=== PATIENT | male | born 1955 | race African-American/Black ===

== ENCOUNTER 2020-06-02 11:18 | Inpatient (IN) | payer MEDICAID, MEDICARE, OTHER ==
[~2020-06-02] VITALS: Ht 182.9 cm; Wt 73.9 kg
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
[~2020-06-02 11:18] MED LIST: ACETAMINOPHEN-1 EAC1 ORAL; ASPIR-LOW81 MG ORAL; ASPIR-LOW81 MG PO; DOXYCYCLINE MO100 MG ORAL; IBUPROFEN600 MG ORAL; IBUPROFEN600 MG PO; NAPROXEN500 M2 ORAL; NAPROXEN500 MG PO; NIFEDICAL XL30 MG ORAL; NIFEDICAL XL30 MG PO; PHENERGAN/CODE120 ML PO; TYLENOL #31 TAB PO; VICODIN 5-5001 EACH PO
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
[2020-06-02] MEDS ORDERED: Morphine Sulfate 2mg/ml Inj(IV/IM USE ONLY) IVP ONE (11:45)
[2020-06-02 11:57] LABS: HEMATOCRIT 36.9 % (42.0-52.0); HEMOGLOBIN 11.5 G/DL (14.2-18.0); LYMPHOCYTES % (AUTO) 4.6 % (20.0-45.0); MEAN CORPUSCULAR VOLUME 99 FL (80-99); MONOCYTES % (AUTO) 12.3 % (1.0-10.0); NEUTROPHILS % (AUTO) 82.1 % (45.0-75.0); PLATELET COUNT 183 K/UL (150-450); RED BLOOD COUNT 3.73 M/UL (4.70-6.10); RED CELL DISTRIBUTION WIDTH 15.5 % (11.6-14.8); WHITE BLOOD COUNT 9.9 K/UL (4.8-10.8)
--- NOTE | 2020-06-02 12:01 | NUR ---
ED Nurse Note: x-ray tech at bedside.
[2020-06-02 12:09] LABS: ANION GAP 16 mmol/L (5-15); BLOOD UREA NITROGEN 23 mg/dL (7-18); CALCIUM 9.4 MG/DL (8.5-10.1); CARBON DIOXIDE 18 MMOL/L (21-32); CHLORIDE 102 MMOL/L (98-107); CREATININE 1.4 MG/DL (0.55-1.30); POTASSIUM 4.1 MMOL/L (3.5-5.1); SODIUM 136 MMOL/L (136-145)
[2020-06-02 12:22] LABS: ALANINE AMINOTRANSFERASE 46 U/L (12-78); ALBUMIN 4.3 G/DL (3.4-5.0); ALBUMIN/GLOBULIN RATIO 1.4 (1.0-2.7); ALKALINE PHOSPHATASE 64 U/L (46-116); ASPARTATE AMINO TRANSFERASE 86 U/L (15-37); BILIRUBIN,TOTAL 1.2 MG/DL (0.2-1.0); CREATINE KINASE 3078 U/L (26-308)
[2020-06-02 12:23] LABS: BILIRUBIN,DIRECT 0.2 MG/DL (0.0-0.3)
--- NOTE | 2020-06-02 12:38 | NUR ---
ED Nurse Note: Pt was taken to CT via wc accompanied by a tech.
--- NOTE | 2020-06-02 13:02 | NUR ---
ED Nurse Note: Pt returned from CT, not in any distress.
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
--- NOTE | 2020-06-02 13:53 | Diagnostic Imaging Report ---
Indication: Shortness of breath Technique: One view of the chest Comparison: none Findings: Lungs and pleural spaces are clear. Heart size is normal. Impression: No acute process
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
--- NOTE | 2020-06-02 14:00 | Diagnostic Imaging Report ---
Indication: Right knee plain Technique: 3 views of the right knee Comparison: None Findings: There is a small suprapatellar effusion. There is slight prepatellar soft tissue swelling. There is a comminuted fracture of the lateral aspect of the proximal tibia. There is an associated nondisplaced fracture of the fibula. Impression: Positive for proximal tibial and proximal fibular fractures
[2020-06-02 14:30] VITALS: BP 159/60
--- NOTE | 2020-06-02 14:39 | NUR ---
ED Nurse Note: REPORT GIVEN TO BREANNA CARTER
--- NOTE | 2020-06-02 15:15 | NUR ---
NURSE NOTES: Received report from Bobbi TYSON, patient a/a/o x4 laying in bed with no signs of distress or other issues at this time. patient is able to verbalized needed, no c/o of pain. knee in mobilizer in place. IV on the left AC. RN will contact MD to obtain admitting orders. call light within reach, bed in lowest position. side rales up x2. I will f/u as needed.
--- NOTE | 2020-06-02 15:33 | Diagnostic Imaging Report ---
Indication: Right leg pain Technique: 2 views of the right tibia and fibula Comparison: none Findings: There is a fracture of the proximal tibia and proximal fibula, also reported on separate knee radiograph. No shaft fracture demonstrated. There are arterial calcifications. Impression: Positive for proximal tibial and fibular fractures
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
--- NOTE | 2020-06-02 19:25 | NUR ---
NURSE HAND-OFF: Important Events on Shift:[] Patient Status: full code/ stable Diet: regular Pending Orders: [] Pending Results/Labs: AM labs Pending MD notification:[] Latest Vital Signs: Temperature 98.0 , Pulse 85 , B/P 159 /60 , Respiratory Rate 20 , O2 SAT 100 , Room Air, O2 Flow Rate . Vital Sign Comment: stable Latest Huertas Fall Score: 55 Fall Risk: High Risk Safety Measures: Call light Within Reach, Bed Alarm Zone 1, Side Rails Side Rails x2, Bed position Low and Locked. Fall Precautions: yes, due to right Tibia fx. Patient Fall Education Report given to Bharati CARLOS. patient in stable position. - per Dr. Vieyra patient ok to d/c, they will fallow up with the patient for out patient surgery. RX for pain medication in the chart. - in coming nurse is aware.
[2020-06-02 20:00] VITALS: BP 143/67
[2020-06-02] MEDS: Heparin 5000 units/ml inj SUBQ SCH (20:28)
[2020-06-02] MEDS: Morphine Sulfate 2mg/ml Inj(IV/IM USE ONLY) IVP PRN (23:15)
[2020-06-03] VITALS: BP 123/69
[2020-06-03 04:00] VITALS: BP 111/70
[2020-06-03] MEDS: Morphine Sulfate 2mg/ml Inj(IV/IM USE ONLY) IVP PRN ×2 (04:35→17:27)
--- NOTE | 2020-06-03 07:00 | NUR ---
NURSE HAND-OFF: Important Events on Shift:pain Patient Status: stable Diet: reg Pending Orders: Pending Results/Labs:am labs Pending MD notification: Latest Vital Signs: Temperature 97.8 , Pulse 79 , B/P 111 /70 , Respiratory Rate 18 , O2 SAT 98 , Room Air, O2 Flow Rate . Vital Sign Comment: [] Latest Huertas Fall Score: 55 Fall Risk: High Risk Safety Measures: Call light Within Reach, Bed Alarm Zone 1, Side Rails Side Rails x2, Bed position Low and Locked. Fall Precautions: Yellow Socks Yellow Gown Door Sign Patient Fall Education Addendum: 06/03/20 at 0725 by SEBLE FONTENOT RN RN HAND-OFF: Report given to
--- NOTE | 2020-06-03 07:00 | NUR ---
NURSE NOTES: Received report from Clementina CARLOS. Patient is awake and oriented, denies pain in right knee, complaining of "stiffness." Knee immobilizer and ice pack in place. IV fluids infusing per order. Updated on plan of care. Side rails upx3, bed low and locked, call light within reach.
[2020-06-03 07:22] LABS: BASOPHILS % (AUTO) 0.8 % (0.0-2.0); EOSINOPHILS % (AUTO) 0.9 % (0.0-3.0); HEMATOCRIT 29.7 % (42.0-52.0); HEMOGLOBIN 9.3 G/DL (14.2-18.0); MEAN CORPUSCULAR VOLUME 99 FL (80-99); MONOCYTES % (AUTO) 12.9 % (1.0-10.0); NEUTROPHILS % (AUTO) 74.4 % (45.0-75.0); PLATELET COUNT 138 K/UL (150-450); RED CELL DISTRIBUTION WIDTH 15.2 % (11.6-14.8); WHITE BLOOD COUNT 6.3 K/UL (4.8-10.8)
[2020-06-03 07:23] LABS: ANION GAP 9 mmol/L (5-15); BLOOD UREA NITROGEN 24 mg/dL (7-18); CALCIUM 8.4 MG/DL (8.5-10.1); CARBON DIOXIDE 22 MMOL/L (21-32); CHLORIDE 108 MMOL/L (98-107); CREATINE KINASE 4444 U/L (26-308); CREATININE 1.3 MG/DL (0.55-1.30); POTASSIUM 3.9 MMOL/L (3.5-5.1); SODIUM 139 MMOL/L (136-145)
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
[2020-06-03 08:00] VITALS: BP 104/61
--- NOTE | 2020-06-03 09:00 | NUR ---
PT EVALUATION NOTE Patient seen for initial evaluation and treatment initiated. Patient presents with impaired functional mobility and activity tolerance s/p R tibial plateau fx. Patient requires SBA/CGA for transfers with FWW, NWB RLE. Patient able to ambulate 30 ft with CGA and FWW, slowed pace, NWB RLE. Patient c/o fatigue after ambulation. Patient will benefit from skilled inpatient PT intervention to increase postural stability for improved level of functional mobility, safety and activity tolerance. Recommend discharge to SNF once medically cleared by MD. Patient is partially blind at baseline and lives with a part-time caregiver in a second floor apartment without elevator access. Recommend FWW for ambulation. Addendum: 06/03/20 at 1054 by SAMI RAE PT Amended: Links added.
[2020-06-03] MEDS: Heparin 5000 units/ml inj SUBQ SCH ×2 (09:15→19:50)
--- NOTE | 2020-06-03 10:30 | NUR ---
CASE MANAGEMENT:REVIEW SI;RT TIBIAL PLATEAU FRACTURE 98.1 88 20 143/67 96% ON RA H/H- 9.3/29.7 PLT- 138 BUN+ 24 TCK+ 4444 IS;PROTONIX PO QD HEPARIN SQ Q12 MORPHINE IV Q4 PRN IVF NS @ 150 ML/HR MED SURG STATUS DCP;FROM HOME PLAN; PT EVAL ORIF WHEN STABLE AND SWELLING HAS SUBSIDED
--- NOTE | 2020-06-03 11:32 | General Progress Note ---
Subjective Allergies: Coded Allergies: No Known Allergies (Verified , 12/30/10) Subjective care noted reviewed with patient Objective Last 24 Hour Vital Signs Date Time Temp Pulse Resp B/P (MAP) Pulse Ox O2 Delivery O2 Flow Rate FiO2 06/03/20 09:00 Room Air 06/03/20 08:00 97.3 79 18 104/61 (75) 96 06/03/20 04:00 97.8 79 18 111/70 (84) 98 06/03/20 00:00 98.1 79 20 123/69 (87) 100 06/02/20 21:00 Room Air 06/02/20 20:00 98.1 88 20 143/67 (92) 99 06/02/20 16:40 Room Air 06/02/20 14:42 98.0 78 21 148/57 99 Room Air 06/02/20 14:30 98.0 85 20 159/60 100 Room Air 06/02/20 12:30 97.6 Intake and Output 06/02/20 06/03/20 19:00 07:00 Intake Total 300 ml Output Total 200 ml 600 ml Balance 100 ml -600 ml Intake Oral 300 ml Output Urine Total 200 ml 600 ml # Voids 2 Laboratory Tests 06/02/20 11:48: White Blood Count 9.9, Red Blood Count 3.73L, Hemoglobin 11.5L, Hematocrit 36.9L , Mean Corpuscular Volume 99, Mean Corpuscular Hemoglobin 31.0, Mean Corpuscular Hemoglobin Concent 31.3L, Red Cell Distribution Width 15.5H, Platelet Count 183, Mean Platelet Volume 8.1, Neutrophils (%) (Auto) 82.1H, Lymphocytes (%) (Auto) 4.6L, Monocytes (%) (Auto) 12.3H, Eosinophils (%) (Auto) 0.0, Basophils (%) (Auto) 1.0, Prothrombin Time 10.7, Prothromb Time International Ratio 1.0, Activated Partial Thromboplast Time 25, Sodium Level 136, Potassium Level 4.1, Chloride Level 102, Carbon Dioxide Level 18L, Anion Gap 16H, Blood Urea Nitrogen 23H, Creatinine 1.4H, Estimat Glomerular Filtration Rate > 60, Glucose Level 107H, Calcium Level 9.4, Total Bilirubin 1.2H, Direct Bilirubin 0.2, Aspartate Amino Transf (AST/SGOT) 86H, Alanine Aminotransferase (ALT/SGPT) 46, Alkaline Phosphatase 64, Total Creatine Kinase 3078H, Troponin I 0.015, Total Protein 7.4, Albumin 4.3, Globulin 3.1, Albumin/Globulin Ratio 1.4 06/03/20 06:26: White Blood Count 6.3, Red Blood Count 3.00L, Hemoglobin 9.3L, Hematocrit 29.7L, Mean Corpuscular Volume 99, Mean Corpuscular Hemoglobin 31.1H, Mean Corpuscular Hemoglobin Concent 31.4L, Red Cell Distribution Width 15.2H, Platelet Count 138L , Mean Platelet Volume 8.2, Neutrophils (%) (Auto) 74.4, Lymphocytes (%) (Auto) 11.0L, Monocytes (%) (Auto) 12.9H, Eosinophils (%) (Auto) 0.9, Basophils (%) (Auto) 0.8, Sodium Level 139, Potassium Level 3.9, Chloride Level 108H, Carbon Dioxide Level 22, Anion Gap 9, Blood Urea Nitrogen 24H, Creatinine 1.3, Estimat Glomerular Filtration Rate > 60, Glucose Level 100, Calcium Level 8.4L, Total Creatine Kinase 4444H Height (Feet): 6 Height (Inches): 1.00 Weight (Pounds): 163 Objective WDWN NAD clear breath sounds bilaterally without rhonchi or wheeze [id number] without MRG NABS nontender no HSM no CCE nonfocal Assessment/Plan Assessment/Plan: IMPRESSION: 1. Tibial plateau fracture, right. 2. Elevated CK. 3. Anemia. 4. Rhabdomyolysis. 5. Hyperglycemia. 6. Hypertension. PLAN CK rising iv hydration renal follow up impression, plan, and exam edited and reviewed in detail care discussed with Thomas Willams MD Jun 03, 2020 11:32
[2020-06-03 12:00] VITALS: BP 126/77
[2020-06-03 16:00] VITALS: BP 137/85
--- NOTE | 2020-06-03 18:58 | NUR ---
NURSE HAND-OFF: Important Events on Shift: PT eval, pain management Patient Status: stable Diet: Reg Pending Orders: n/a Pending Results/Labs: n/a Pending MD notification: n/a Latest Vital Signs: Temperature 97.5 , Pulse 84 , B/P 137 /85 , Respiratory Rate 18 , O2 SAT 96 , Room Air Vital Sign Comment: VS stable Latest Huertas Fall Score: 55 Fall Risk: High Risk Safety Measures: Call light Within Reach, Bed Alarm Zone 1, Side Rails Side Rails x2, Bed position Low and Locked. Fall Precautions: Yellow Socks Door Sign Patient Fall Education Report given to Clementina CARLOS.
--- NOTE | 2020-06-03 19:15 | NUR ---
NURSE NOTES: Received report from BREANNA Bonilla. AAO x 4, on RA. R knee swollen and immobilizer applied. Cane and Commode at bedside. IV intact and running IVF. c/o pain on R knee 09/22. Bed locked, lowest position, alarm on, side rails up, call light within reach. will continue to monitor.
[2020-06-03 20:00] VITALS: BP 147/90
[2020-06-04] VITALS: BP 149/88
[2020-06-04 04:00] VITALS: BP 142/86
[2020-06-04] MEDS: Morphine Sulfate 2mg/ml Inj(IV/IM USE ONLY) IVP PRN ×2 (05:08→21:24)
--- NOTE | 2020-06-04 07:28 | NUR ---
HAND-OFF: Report given to
--- NOTE | 2020-06-04 07:30 | NUR ---
NURSE NOTES: Received report from BREANNA Mcrae. Rounding done with outgoing nurse. Pt is a/o x 4. No SOB noted. Denies any pain at this time. Knee immobilizer is on right leg. NS is running @ 50ml/hr via Lt AC. Bed in lowest position, call light within reach. Will continue to monitor.
[2020-06-04 08:00] VITALS: BP 121/76
[2020-06-04 08:08] LABS: ANION GAP 9 mmol/L (5-15); BLOOD UREA NITROGEN 17 mg/dL (7-18); CALCIUM 8.6 MG/DL (8.5-10.1); CARBON DIOXIDE 22 MMOL/L (21-32); CHLORIDE 110 MMOL/L (98-107); CREATINE KINASE 3916 U/L (26-308); CREATININE 1.1 MG/DL (0.55-1.30); POTASSIUM 3.9 MMOL/L (3.5-5.1); SODIUM 141 MMOL/L (136-145)
[2020-06-04] MEDS: Heparin 5000 units/ml inj SUBQ SCH ×2 (08:30→20:20)
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
--- NOTE | 2020-06-04 11:59 | NUR ---
CASE MANAGEMENT:REVIEW SI;RT TIBIAL PLATEAU FRACTURE. RHABDOMYOLYSIS. 98.4 87 19 149/88 98% ON RA CL+ 110 TCK 3916 IS;PROTONIX PO QD IVF NS @ 150 ML/HR MORPHINE SULFATE IV Q4 PRN MED SURG STATUS DCP;FROM HOME
[2020-06-04 12:00] VITALS: BP 134/82
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
[2020-06-04 16:00] VITALS: BP 152/93
--- NOTE | 2020-06-04 17:02 | General Progress Note ---
Subjective Allergies: Coded Allergies: No Known Allergies (Verified , 12/30/10) Subjective care noted reviewed with patient Objective Last 24 Hour Vital Signs Date Time Temp Pulse Resp B/P (MAP) Pulse Ox O2 Delivery O2 Flow Rate FiO2 06/04/20 12:00 97.5 83 18 134/82 (99) 98 06/04/20 09:00 Room Air 06/04/20 08:00 98.1 85 19 121/76 (91) 100 06/04/20 04:00 98.4 87 18 142/86 (104) 98 06/04/20 00:00 97.8 79 18 149/88 (108) 98 06/03/20 21:00 Room Air 06/03/20 20:00 98.0 87 18 147/90 (109) 98 Intake and Output 06/03/20 06/04/20 19:00 07:00 Intake Total 2100 ml 240 ml Output Total 750 ml Balance 1350 ml 240 ml Intake Oral 600 ml 240 ml IV Total 1500 ml Output Urine Total 750 ml Laboratory Tests 06/04/20 06:38: Sodium Level 141, Potassium Level 3.9, Chloride Level 110H, Carbon Dioxide Level 22, Anion Gap 9, Blood Urea Nitrogen 17, Creatinine 1.1, Estimat Glomerular Filtration Rate > 60, Glucose Level 95, Calcium Level 8.6, Total Creatine Kinase 3916H Height (Feet): 6 Height (Inches): 1.00 Weight (Pounds): 163 Objective WDWN NAD clear breath sounds bilaterally without rhonchi or wheeze [id number] without MRG NABS nontender no HSM no CCE nonfocal Assessment/Plan Assessment/Plan: IMPRESSION: 1. Tibial plateau fracture, right. 2. Elevated CK. 3. Anemia. 4. Rhabdomyolysis. 5. Hyperglycemia. 6. Hypertension. PLAN CK not yet improved iv hydration renal follow up impression, plan, and exam edited and reviewed in detail care discussed with Thomas Willams MD Jun 04, 2020 17:02
--- NOTE | 2020-06-04 18:55 | NUR ---
NURSE HAND-OFF: Important Events on Shift: No new event Patient Status: stable Diet: regular Pending Orders: n/a Pending Results/Labs:n/a Pending MD notification:n/a Latest Vital Signs: Temperature 98.5 , Pulse 89 , B/P 152 /93 , Respiratory Rate 19 , O2 SAT 99 , Room Air, O2 Flow Rate . Vital Sign Comment: stable Latest Huertas Fall Score: 55 Fall Risk: High Risk Safety Measures: Call light Within Reach, Bed Alarm Zone 1, Side Rails Side Rails x2, Bed position Low and Locked. Fall Precautions: Yellow Socks Yellow Gown Door Sign Patient Fall Education Report given to BREANNA Onofre.
--- NOTE | 2020-06-04 19:36 | NUR ---
NURSE NOTES: Patient in bed, awake, alert and verbally responsive. Able to make needs known. REspiration is even and unlabored. No complaint of pain or discomfort at the moment. Abdomen is soft and non distended. IV site noted, iv fluid is infusing as ordered. Kept clean and comfortable. Provided safe environment. Immobilizer on the right leg. Call light is at bedside. Will continue plan of care.
[2020-06-04 20:00] VITALS: BP 145/88
[2020-06-05] VITALS: BP 152/81
[2020-06-05 04:00] VITALS: BP 155/88
[2020-06-05 06:17] LABS: HEMATOCRIT 25.1 % (42.0-52.0); HEMOGLOBIN 7.9 G/DL (14.2-18.0); MEAN CORPUSCULAR VOLUME 99 FL (80-99); PLATELET COUNT 140 K/UL (150-450); RED BLOOD COUNT 2.52 M/UL (4.70-6.10); RED CELL DISTRIBUTION WIDTH 15.7 % (11.6-14.8); WHITE BLOOD COUNT 4.6 K/UL (4.8-10.8)
--- NOTE | 2020-06-05 07:11 | NUR ---
NURSE HAND-OFF: Important Events on Shift:WNL Patient Status: Diet: REG Pending Orders: Pending Results/Labs: Pending MD notification: Latest Vital Signs: Temperature 97.8 , Pulse 76 , B/P 155 /88 , Respiratory Rate 20 , O2 SAT 100 , Room Air, O2 Flow Rate . Vital Sign Comment: WNL Latest Huertas Fall Score: 45 Fall Risk: High Risk Safety Measures: Call light Within Reach, Bed Alarm Zone 1, Side Rails Side Rails x2, Bed position Low and Locked. Fall Precautions: Yellow Socks Yellow Gown Door Sign Patient Fall Education Report given to BREANNA Paige.
[2020-06-05 07:12] LABS: ALANINE AMINOTRANSFERASE 46 U/L (12-78); ALBUMIN 2.7 G/DL (3.4-5.0); ALBUMIN/GLOBULIN RATIO 0.8 (1.0-2.7); ALKALINE PHOSPHATASE 43 U/L (46-116); ANION GAP 7 mmol/L (5-15); ASPARTATE AMINO TRANSFERASE 100 U/L (15-37); BILIRUBIN,TOTAL 0.4 MG/DL (0.2-1.0); BLOOD UREA NITROGEN 13 mg/dL (7-18); CALCIUM 8.4 MG/DL (8.5-10.1); CARBON DIOXIDE 23 MMOL/L (21-32); CHLORIDE 112 MMOL/L (98-107); CREATINE KINASE 3710 U/L (26-308); CREATININE 1.1 MG/DL (0.55-1.30); POTASSIUM 3.7 MMOL/L (3.5-5.1); SODIUM 142 MMOL/L (136-145)
--- NOTE | 2020-06-05 07:20 | NUR ---
NURSE NOTES: Report received from [place] CARLOS, rounds made. Patient resting in semi-fowlers position in bed. AOx4, calm. Respirations even/unlabored on RA. RLE immobilizer on. Neuro checks done, skin warm, wiggles, pulses palpable, no NT, no swelling noted. IVF (NS at 150 ml/hr) to LFA, site asymptomatic. Call light in reach, bed in lowest position, will continue to monitor.
[2020-06-05 08:00] VITALS: BP 127/75
[2020-06-05] MEDS: Heparin 5000 units/ml inj SUBQ SCH (09:29)
--- NOTE | 2020-06-05 09:30 | NUR ---
NURSE NOTES: Dr. Rollins notified of platelets 140, okay to give Heparin.
[2020-06-05] MEDS: Morphine Sulfate 2mg/ml Inj(IV/IM USE ONLY) IVP PRN (09:33)
--- NOTE | 2020-06-05 10:23 | General Progress Note ---
Subjective Allergies: Coded Allergies: No Known Allergies (Verified , 12/30/10) Subjective care noted reviewed with patient Objective Last 24 Hour Vital Signs Date Time Temp Pulse Resp B/P (MAP) Pulse Ox O2 Delivery O2 Flow Rate FiO2 06/05/20 08:00 96.8 86 19 127/75 (92) 99 06/05/20 04:00 97.8 76 20 155/88 (110) 100 06/05/20 00:00 98.8 72 19 152/81 (104) 96 06/04/20 20:04 Room Air 06/04/20 20:00 98.7 93 19 145/88 (107) 98 06/04/20 16:00 98.5 89 19 152/93 (112) 99 06/04/20 12:00 97.5 83 18 134/82 (99) 98 Intake and Output 06/04/20 06/05/20 19:00 07:00 Intake Total 950 ml 1050 ml Balance 950 ml 1050 ml Intake Oral 800 ml IV Total 150 ml 1050 ml # Voids 2 1 Laboratory Tests 06/05/20 05:35: White Blood Count 4.6L, Red Blood Count 2.52L, Hemoglobin 7.9L, Hematocrit 25.1L , Mean Corpuscular Volume 99, Mean Corpuscular Hemoglobin 31.4H, Mean Corpuscular Hemoglobin Concent 31.5L, Red Cell Distribution Width 15.7H, Plat elet Count 140L, Mean Platelet Volume 8.1, Neutrophils (%) (Auto) , Lymphocytes (%) (Auto) , Monocytes (%) (Auto) , Eosinophils (%) (Auto) , Basophils (%) (Auto) , Differential Total Cells Counted 100, Neutrophils % (Manual) 62, Lymphocytes % (Manual) 20, Monocytes % (Manual) 11H, Eosinophils % (Manual) 0, Basophils % (Manual) 0, Band Neutrophils 7, Platelet Estimate Adequate, Platelet Morphology Normal, Hypochromasia 3+, Anisocytosis 1+, Sodium Level 142, Potassium Level 3.7, Chloride Level 112H, Carbon Dioxide Level 23, Anion Gap 7, Blood Urea Nitrogen 13, Creatinine 1.1, Estimat Glomerular Filtration Rate > 60, Glucose Level 99, Calcium Level 8.4L, Total Bilirubin 0.4, Aspartate Amino Transf (AST/SGOT) 100H, Alanine Aminotransferase (ALT/SGPT) 46, Alkaline Phosphatase 43L, Total Creatine Kinase 3710H, Total Protein 5.9L, Albumin 2.7L, Globulin 3.2, Albumin/Globulin Ratio 0.8L Height (Feet): 6 Height (Inches): 1.00 Weight (Pounds): 163 Objective WDWN NAD clear breath sounds bilaterally without rhonchi or wheeze [id number] without MRG NABS nontender no HSM no CCE nonfocal Assessment/Plan Assessment/Plan: IMPRESSION: 1. Tibial plateau fracture, right. 2. Elevated CK. 3. Anemia. worsening 4. Rhabdomyolysis. 5. Hyperglycemia. 6. Hypertension. PLAN CK not yet improved iv hydration renal follow up will call gi hold heparin repeat labs in am impression, plan, and exam edited and reviewed in detail care discussed with Thomas Willams MD Jun 05, 2020 10:22
--- NOTE | 2020-06-05 10:36 | NUR ---
NURSE NOTES: Dr. Rollins notified of HH 7.9/25.1, orders to discontinue Heparin.
[2020-06-05 12:00] VITALS: BP 150/96
--- NOTE | 2020-06-05 14:08 | NUR ---
CASE MANAGEMENT:REVIEW SI;RT TIBIAL PLATEAU FRACTURE. RHABDOMYOLYSIS. 98.8 93 20 155/88 96% ON RA H/H- 7.9/25.1 PLT- 140 AST+ 100 TCK+ 3710 ALB- 2.7 IS;PROTONIX PO QD IVF NS @ 150 ML/HR MORPHINE SULFATE IV Q4 PRN MED SURG STATUS DCP;FROM HOME
[2020-06-05 15:15] VITALS: BP 152/78
--- NOTE | 2020-06-05 15:15 | NUR ---
NURSE NOTES: notified of new temperature 100, administer Tylenol as previously ordered. Encouraged PO fluid intake, IVF infusing at 150 ml/hr. Will monitor temperature.
--- NOTE | 2020-06-05 17:15 | NUR ---
NURSE NOTES: Family dropped off some patient belongings, reviewed bag content, electric shaver with copy clerk cord and Zestril 10 mg prescription bottle (sent to pharmacy security #[id number]), patient aware, verbalized understanding. Message left for Dr. Rollins regarding home medication, awaiting operations trainer back.
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
[2020-06-05] MEDS ORDERED: ZESTRIL10 M1 ORAL (18:32)
--- NOTE | 2020-06-05 19:11 | NUR ---
NURSE HAND-OFF: Important Events on Shift:HH 7.9/25.1 (Dr. Ria kwong, DC heparin),Temperature 100, Tylenol, 97.5 (Dr. Ria kwong), new order for Zestril, Order FWW for home per PT recommendation (need from central supply) Patient Status: stable Diet: regular Pending Orders: labs AM Pending Results/Labs:CBC BMP CK 06/06 Pending MD notification:none Latest Vital Signs: Temperature 97.5 , Pulse 75 , B/P 152 /78 , Respiratory Rate 19 , O2 SAT 99 , Room Air, O2 Flow Rate . Vital Sign Comment: monitor temp/bp Latest Huertas Fall Score: 60 Fall Risk: High Risk Safety Measures: Call light Within Reach, Bed Alarm Zone 1, Side Rails Side Rails x2, Bed position Low and Locked. Fall Precautions: Yellow Socks Yellow Gown Door Sign Patient Fall Education Report given to Juan Jose CARLOS.
[2020-06-05 20:00] VITALS: BP 107/66
[2020-06-05] MEDS: Lisinopril 10mg tab ORAL SCH (20:00)
--- NOTE | 2020-06-05 20:05 | NUR ---
NURSE NOTES: received patient comfortably sleeping, with immobilizer on R lower extremity.
[2020-06-06] VITALS: BP 149/97
[2020-06-06 04:00] VITALS: BP 155/86
[2020-06-06 06:19] LABS: BASOPHILS % (AUTO) 2.1 % (0.0-2.0); EOSINOPHILS % (AUTO) 2.5 % (0.0-3.0); HEMATOCRIT 26.3 % (42.0-52.0); HEMOGLOBIN 8.1 G/DL (14.2-18.0); LYMPHOCYTES % (AUTO) 15.7 % (20.0-45.0); MEAN CORPUSCULAR VOLUME 99 FL (80-99); MONOCYTES % (AUTO) 17.2 % (1.0-10.0); NEUTROPHILS % (AUTO) 62.5 % (45.0-75.0); PLATELET COUNT 171 K/UL (150-450); RED BLOOD COUNT 2.66 M/UL (4.70-6.10); RED CELL DISTRIBUTION WIDTH 15.2 % (11.6-14.8); WHITE BLOOD COUNT 4.2 K/UL (4.8-10.8)
[2020-06-06 06:40] LABS: ANION GAP 8 mmol/L (5-15); BLOOD UREA NITROGEN 13 mg/dL (7-18); CALCIUM 8.4 MG/DL (8.5-10.1); CARBON DIOXIDE 24 MMOL/L (21-32); CHLORIDE 109 MMOL/L (98-107); CREATINE KINASE 3017 U/L (26-308); CREATININE 1.2 MG/DL (0.55-1.30); POTASSIUM 3.9 MMOL/L (3.5-5.1); SODIUM 140 MMOL/L (136-145)
--- NOTE | 2020-06-06 07:32 | NUR ---
HAND-OFF: Report given to BREANNA Marroquin.
--- NOTE | 2020-06-06 07:35 | NUR ---
NURSE NOTES: Received report from BREANNA Beckford. Pt is a/o x 4. Pt has leg immobilizer on right leg. Right leg is still swollen. Denies any pain at this time. NS is running @ 150ml/hr via Lt FA IV access. Bed in lowest position, call light within reach. Will continue to monitor.
[2020-06-06 08:00] VITALS: BP 164/94
--- NOTE | 2020-06-06 08:44 | General Progress Note ---
Subjective Allergies: Coded Allergies: No Known Allergies (Verified , 12/30/10) Subjective care noted reviewed with patient Objective Last 24 Hour Vital Signs Date Time Temp Pulse Resp B/P (MAP) Pulse Ox O2 Delivery O2 Flow Rate FiO2 06/06/20 04:00 97.5 75 20 155/86 (109) 96 06/06/20 00:00 98.2 86 20 149/97 (114) 94 06/05/20 20:28 Room Air 06/05/20 20:00 98.4 78 18 107/66 (80) 98 06/05/20 20:00 107/66 06/05/20 18:45 97.5 06/05/20 15:47 97.5 06/05/20 15:15 100.0 75 19 152/78 (102) 99 06/05/20 12:00 98.6 81 18 150/96 (114) 99 06/05/20 09:00 Room Air Intake and Output 06/05/20 06/06/20 19:00 07:00 Intake Total 2370 ml 2080 ml Balance 2370 ml 2080 ml Intake Oral 720 ml 480 ml IV Total 1650 ml 1600 ml # Voids 3 4 # Bowel Movements 1 Laboratory Tests 06/06/20 06:09: White Blood Count 4.2L, Red Blood Count 2.66L, Hemoglobin 8.1L, Hematocrit 26.3L , Mean Corpuscular Volume 99, Mean Corpuscular Hemoglobin 30.6, Mean Corpuscular Hemoglobin Concent 30.9L, Red Cell Distribution Width 15.2H, Platelet Count 171, Mean Platelet Volume 7.7, Neutrophils (%) (Auto) 62.5, Lymphocytes (%) (Auto) 15.7L, Monocytes (%) (Auto) 17.2H, Eosinophils (%) (Auto) 2.5, Basophils (%) (Auto) 2.1H, Sodium Level 140, Potassium Level 3.9, Chloride Level 109H, Carbon Dioxide Level 24, Anion Gap 8, Blood Urea Nitrogen 13, Creatinine 1.2, Estimat Glomerular Filtration Rate > 60, Glucose Level 101, Calcium Level 8.4L, Total Creatine Kinase 3017H Height (Feet): 6 Height (Inches): 1.00 Weight (Pounds): 163 Objective WDWN NAD clear breath sounds bilaterally without rhonchi or wheeze [id number] without MRG NABS nontender no HSM no CCE nonfocal Assessment/Plan Assessment/Plan: IMPRESSION: 1. Tibial plateau fracture, right. 2. Elevated CK. 3. Anemia. worsening 4. Rhabdomyolysis. 5. Hyperglycemia. 6. Hypertension. PLAN CK still elevated iv hydration renal follow up monitor repeat labs in am impression, plan, and exam edited and reviewed in detail care discussed with Thomas Willams MD Jun 06, 2020 08:44
[2020-06-06] MEDS: Lisinopril 10mg tab ORAL SCH (09:15)
[2020-06-06] MEDS: Morphine Sulfate 2mg/ml Inj(IV/IM USE ONLY) IVP PRN (09:15)
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
--- NOTE | 2020-06-06 11:40 | NUR ---
PT NOTE Attempted to see patient for BID treatment. Patient's BP 160/94. Treatment deferred due to elevated BP, Justo CARLOS notified, will follow.
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
[2020-06-06 12:00] VITALS: BP 160/94
--- NOTE | 2020-06-06 13:20 | NUR ---
NURSE NOTES: BP was 162/94, [place] [address] Rollins was notified @ 5252. ordered 1. clonidine 0.1 mg po q4 prn for SBP>150 2. Amlodipine 5 mg Q5 QD po. Order read back and carried out.
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
[2020-06-06 16:00] VITALS: BP 145/89
--- NOTE | 2020-06-06 19:14 | NUR ---
NURSE HAND-OFF: Important Events on Shift: Pain medication x 1 Patient Status: stable Diet: regular Pending Orders: n/a Pending Results/Labs:n/a Pending MD notification:n/a Latest Vital Signs: Temperature 98.3 , Pulse 82 , B/P 145 /89 , Respiratory Rate 20 , O2 SAT 96 , Room Air, O2 Flow Rate . Vital Sign Comment: stable Latest Huertas Fall Score: 60 Fall Risk: High Risk Safety Measures: Call light Within Reach, Bed Alarm Zone 1, Side Rails Side Rails x2, Bed position Low and Locked. Fall Precautions: Yellow Socks Yellow Gown Door Sign Patient Fall Education Report given to BREANNA Beckford.
--- NOTE | 2020-06-06 19:52 | NUR ---
NURSE NOTES: Received patient comfortably sleeping, R lower extremity with immobilizer and elevated.
[2020-06-06 20:00] VITALS: BP 145/84
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
[2020-06-07 00:14] VITALS: BP 150/91
[2020-06-07 04:31] VITALS: BP 173/98
--- NOTE | 2020-06-07 07:06 | NUR ---
HAND-OFF: Report given to Grecia Rodarte RN.
--- NOTE | 2020-06-07 07:08 | NUR ---
NURSE NOTES: Report received from Analy RN, rounds made. Patient resting in semi-fowlers position in bed. AOx4, calm. Respirations even/unlabored on RA. RLE immobilizer on. Neuro checks done, skin warm, wiggles, pulses palpable, no NT, no swelling noted. Denies need for pain medication at this time. IVF (NS at 150 ml/hr) to LFA, site asymptomatic. Updated patient on orders for Stool OB needed, provided hat in BSC. Call light in reach, bed in lowest position, will continue to monitor.
[2020-06-07 07:58] LABS: BASOPHILS % (AUTO) 1.5 % (0.0-2.0); EOSINOPHILS % (AUTO) 2.8 % (0.0-3.0); HEMATOCRIT 25.3 % (42.0-52.0); HEMOGLOBIN 8.1 G/DL (14.2-18.0); LYMPHOCYTES % (AUTO) 15.5 % (20.0-45.0); MEAN CORPUSCULAR VOLUME 97 FL (80-99); MONOCYTES % (AUTO) 15.3 % (1.0-10.0); PLATELET COUNT 178 K/UL (150-450); RED CELL DISTRIBUTION WIDTH 15.1 % (11.6-14.8); WHITE BLOOD COUNT 4.4 K/UL (4.8-10.8)
[2020-06-07 08:00] VITALS: BP 136/77
[2020-06-07 08:36] LABS: CREATINE KINASE 1684 U/L (26-308)
[2020-06-07] MEDS: Lisinopril 10mg tab ORAL SCH (09:27)
[2020-06-07] MEDS: Morphine Sulfate 2mg/ml Inj(IV/IM USE ONLY) IVP PRN (09:31)
--- NOTE | 2020-06-07 09:45 | NUR ---
NURSE NOTES: Stool OB collected and sent to lab at this time.
[2020-06-07 12:00] VITALS: BP 155/92
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
[2020-06-07] MEDS ORDERED: HYDROcodone/Acetamin 5/325 tab ORAL PRN (12:30)
--- NOTE | 2020-06-07 12:36 | NUR ---
NURSE NOTES: Patient medicated with Morphine 2 mg IV at 0930 for RLE pain 12/23, pain reassessed 09/22, however, patient is still requesting additional pain medication, Dr. Rollins notified, orders received for [place] 5/325 mg 1 tab for mild pain 1-3 and 2 tabs for moderate pain 4-6, will update patient, will follow as ordered.
[2020-06-07] MEDS: HYDROcodone/Acetamin 5/325 tab ORAL PRN (12:59)
--- NOTE | 2020-06-07 15:33 | Pulmonology Progress Note ---
Subjective ROS Limited/Unobtainable: No Constitutional: Denies: fever, chills Gastrointestinal/Abdominal: Denies: nausea, vomiting, diarrhea Musculoskeletal: Reports: pain - in right leg Allergies: Coded Allergies: No Known Allergies (Verified , 12/30/10) Objective Last 24 Hour Vital Signs Date Time Temp Pulse Resp B/P (MAP) Pulse Ox O2 Delivery O2 Flow Rate FiO2 06/07/20 12:00 97.7 73 20 155/92 (113) 96 06/07/20 09:27 78 136/77 06/07/20 09:27 136/77 06/07/20 09:00 Room Air 06/07/20 08:00 98.2 78 20 136/77 (96) 96 06/07/20 04:36 173/98 06/07/20 04:31 98.3 81 17 173/98 (123) 93 06/07/20 00:14 98.0 83 17 150/91 (110) 93 06/06/20 21:03 Room Air 06/06/20 20:00 98.1 75 17 145/84 (104) 95 06/06/20 16:00 98.3 82 20 145/89 (107) 96 Intake and Output 06/06/20 06/07/20 19:00 07:00 Intake Total 2340 ml 2260 ml Balance 2340 ml 2260 ml Intake Oral 840 ml IV Total 1500 ml 1900 ml Blood Product 360 ml # Voids 4 2 # Bowel Movements 1 Laboratory Tests 06/07/20 06:20: White Blood Count 4.4L, Red Blood Count 2.60L, Hemoglobin 8.1L, Hematocrit 25.3L , Mean Corpuscular Volume 97, Mean Corpuscular Hemoglobin 31.0, Mean Corpuscular Hemoglobin Concent 31.8L, Red Cell Distribution Width 15.1H, Platelet Count 178, Mean Platelet Volume 8.3, Neutrophils (%) (Auto) 65.0, Lymphocytes (%) (Auto) 15.5L, Monocytes (%) (Auto) 15.3H, Eosinophils (%) (Auto) 2.8, Basophils (%) (Auto) 1.5, Total Creatine Kinase 1684H, Pro-B-Type Natriuretic Peptide 2810H 06/07/20 09:40: Stool Occult Blood [Pending] Current Medications Medications (Trade) Dose Ordered Sig/Albert Route PRN Reason Start Time Stop Time Status Last Admin Dose Admin Acetaminophen (Tylenol) 650 mg Q4H PRN ORAL Mild Pain (Pain Scale 1-3) 06/02/20 16:15 07/02/20 16:14 06/05/20 15:17 Acetaminophen/ Hydrocodone Bitart ([place] 5/325) 1 tab Q4H PRN ORAL Mild Pain (Pain Scale 1-3) 06/07/20 12:30 06/14/20 12:29 Acetaminophen/ Hydrocodone Bitart ([place] 5/325) 2 tab Q4H PRN ORAL Moderate Pain (Pain Scale 4-6) 06/07/20 12:30 06/14/20 12:29 06/07/20 12:59 Al Hydroxide/Mg Hydroxide (Mylanta) 30 ml Q4H PRN ORAL Dyspepsia 06/02/20 16:15 07/02/20 16:14 Amlodipine Besylate (Norvasc) 5 mg DAILY ORAL 06/07/20 09:00 07/07/20 08:59 06/07/20 09:27 Clonidine HCl (Catapres Tab) 0.1 mg Q4H PRN ORAL SBP > 150 06/06/20 13:30 09/04/20 13:29 06/07/20 04:36 Lisinopril (ZestriL) 10 mg DAILY ORAL 06/05/20 20:00 07/05/20 19:59 06/07/20 09:27 Morphine Sulfate (Morphine Sulfate) 2 mg Q4H PRN IVP Pain 4-10 06/02/20 15:45 06/09/20 15:44 06/07/20 09:31 Pantoprazole (Protonix) 40 mg DAILY ORAL 06/03/20 09:00 07/03/20 08:59 06/07/20 09:27 Sodium Chloride 1,000 ml @ 150 mls/hr Q6H40M IV 06/02/20 16:15 07/02/20 16:14 06/07/20 14:55 Assessment/Plan Assessment/Plan Pulmonary Progress Note Subjective Allergies: Coded Allergies: No Known Allergies (Verified , 12/30/10) Subjective care noted reviewed with patient ID,GI following Objective Vital Signs noted Laboratory Tests noted Height (Feet): 6 Height (Inches): 1.00 Weight (Pounds): 163 Objective WDWN NAD clear breath sounds bilaterally without rhonchi or wheeze [id number] without MRG NABS nontender no HSM no CCE nonfocal Assessment/Plan IMPRESSION: 1. Tibial plateau fracture, right. 2. Elevated CK. 3. Anemia 4. Rhabdomyolysis. 5. Hyperglycemia. 6. Hypertension. PLAN CK lower iv hydration renal follow up monitor HH repeat labs in am impression, plan, and exam edited and reviewed in detail care discussed with RN Taqueria Quiñonez MD Jun 07, 2020 15:33
[2020-06-07 16:00] VITALS: BP_SYST 142; BP_SYST 159; BP_DIAS 86; BP_DIAS 87
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
--- NOTE | 2020-06-07 19:28 | NUR ---
NURSE HAND-OFF: Important Events on Shift:Medicated with MS 2 mg IV x1 and [place] 5mg 2 tabs x1, FWW received from central supply (needs to be put together for patient upon discharge) Patient Status: stable Diet: regular Pending Orders: labs AM Pending Results/Labs:CBC CMP FOLIC IRON VITAMIN B12 Pending MD notification:none Latest Vital Signs: Temperature 98.6 , Pulse 87 , B/P 142 /87 , Respiratory Rate 20 , O2 SAT 98 , Room Air, O2 Flow Rate . Vital Sign Comment: monitor BP (has clonidine PRN) Latest Huertas Fall Score: 60 Fall Risk: High Risk Safety Measures: Call light Within Reach, Bed Alarm Zone 1, Side Rails Side Rails x2, Bed position Low and Locked. Fall Precautions: Yellow Socks Yellow Gown Door Sign Patient Fall Education Report given to Aissatou CARLOS.
[2020-06-07 20:00] VITALS: BP 159/99
--- NOTE | 2020-06-07 20:00 | NUR ---
NURSE NOTES: RECEIVED PATIENT LYING IN BED, AWAKE, ALERT/ORIENTED X4, VERBALLY RESPONSIVE, PAIN TOLERABLE TO RIGHT LOWER EXTREMITY /, IMMOBILIZER INTACT/LOOSE, PATIENT STATED THAT HE IS IN EXCRUCIATING PAIN WHEN IMMOBILIZER IS TIGHTENED, INFORMED PATIENT THAT THERE ARE INSTRUCTIONS TO APPLY ICE, PATIENT VERBALIZED UNDERSTANDING. IV INTACT TO LEFT FOREARM/GAUGE 22, TOLERATING IV FLUIDS, NO REDNESS/SWELLING NOTED. NO SIGNS AND SYMPTOMS OF ACUTE CARDIO RESPIRATORY DISTRESS/ COMPLAINS OF SHORTNESS SOB ON EXERTION, HISTORY OF BRONCHITIS/COPD. DENIES GI DISCOMFORT, NO N/V/D. SIDE RAILS UP X2, BED IN LOWEST POSITION FOR SAFETY, ENCOURAGED PATIENT TO UTILIZE CALL LIGHT FOR ASSISTANCE, VERBALIZED UNDERSTANDING, CONTINUE WITH CURRENT PLAN OF CARE. NAD.
[2020-06-08] VITALS: BP 173/93
--- NOTE | 2020-06-08 02:19 | Cardiology Progress Note ---
Subjective DATE OF SERVICE: Jun 07, 2020 Objective Last 24 Hour Vital Signs Date Time Temp Pulse Resp B/P (MAP) Pulse Ox O2 Delivery O2 Flow Rate FiO2 06/07/20 23:48 173/93 06/07/20 21:01 Room Air 06/07/20 20:00 98.6 86 17 159/99 (119) 93 06/07/20 16:00 98.6 87 20 142/87 (105) 98 06/07/20 12:00 97.7 73 20 155/92 (113) 96 06/07/20 09:27 78 136/77 06/07/20 09:27 136/77 06/07/20 09:00 Room Air 06/07/20 08:00 98.2 78 20 136/77 (96) 96 06/07/20 04:36 173/98 06/07/20 04:31 98.3 81 17 173/98 (123) 93 Laboratory Tests Test 06/07/20 06:20 06/07/20 09:40 White Blood Count 4.4 K/UL (4.8-10.8) L Red Blood Count 2.60 M/UL (4.70-6.10) L Hemoglobin 8.1 G/DL (14.2-18.0) L Hematocrit 25.3 % (42.0-52.0) L Mean Corpuscular Volume 97 FL (80-99) Mean Corpuscular Hemoglobin 31.0 PG (27.0-31.0) Mean Corpuscular Hemoglobin Concent 31.8 G/DL (32.0-36.0) L Red Cell Distribution Width 15.1 % (11.6-14.8) H Platelet Count 178 K/UL (150-450) Mean Platelet Volume 8.3 FL (6.5-10.1) Neutrophils (%) (Auto) 65.0 % (45.0-75.0) Lymphocytes (%) (Auto) 15.5 % (20.0-45.0) L Monocytes (%) (Auto) 15.3 % (1.0-10.0) H Eosinophils (%) (Auto) 2.8 % (0.0-3.0) Basophils (%) (Auto) 1.5 % (0.0-2.0) Total Creatine Kinase 1684 U/L (26-308) H Pro-B-Type Natriuretic Peptide 2810 pg/mL (0-125) H Stool Occult Blood Pending Assessment/Plan Assessment/Plan Hypertensive heart disease with uncontrolled BP Advance amlodipine dose to 10mg daily Taqueria Trujillo MD Jun 08, 2020 02:19
[2020-06-08 04:00] VITALS: BP 158/89
[2020-06-08] MEDS: HYDROcodone/Acetamin 5/325 tab ORAL PRN (05:22)
--- NOTE | 2020-06-08 07:32 | NUR ---
NURSE HAND-OFF: Important Events on Shift:[UNEVENTFUL NIGHT, RESTED WELL, NAD., PAIN MANAGEMENT] Patient Status: [STABLE] Diet: [REGULAR, GOOD APPETITE] Pending Orders: [AM LABS, STOOL OB PENDING] Pending Results/Labs:[STOOL OB PENDING] Pending MD notification:[] Latest Vital Signs: Temperature 98.3 , Pulse 77 , B/P 158 /89 , Respiratory Rate 17 , O2 SAT 96 , Room Air, O2 Flow Rate . Vital Sign Comment: [HYPERTENSIVE, ASYMPTOMATIC] Latest Huertas Fall Score: 60 Fall Risk: High Risk Safety Measures: Call light Within Reach, Bed Alarm Zone 1, Side Rails Side Rails x2, Bed position Low and Locked. Fall Precautions: Yellow Socks Yellow Gown Door Sign Patient Fall Education Report given to [DEMARRN].
[2020-06-08 08:00] VITALS: BP 147/97
--- NOTE | 2020-06-08 08:15 | NUR ---
NURSE NOTES: Received patient lying in bed, in NAD, AOx4. Wearing RLE immobilizer, has an ice pack on. Skin warm, patient wiggles right toes, pulses palpable, capillary refill , 3 sec, no swelling noted. LFA PIV access, receives IVF at 150 ml/hr, no sign of infiltration or leakage. Call light within reach, bed locked and in lowest position possible, call light within easy reach. Will continue to monitor patient and follow up the plan of care.
[2020-06-08 08:27] LABS: EOSINOPHILS % (AUTO) 2.5 % (0.0-3.0); HEMATOCRIT 28.4 % (42.0-52.0); HEMOGLOBIN 8.8 G/DL (14.2-18.0); LYMPHOCYTES % (AUTO) 12.8 % (20.0-45.0); MEAN CORPUSCULAR VOLUME 98 FL (80-99); MONOCYTES % (AUTO) 17.6 % (1.0-10.0); NEUTROPHILS % (AUTO) 64.1 % (45.0-75.0); PLATELET COUNT 214 K/UL (150-450); RED CELL DISTRIBUTION WIDTH 15.2 % (11.6-14.8); WHITE BLOOD COUNT 5.3 K/UL (4.8-10.8)
[2020-06-08] MEDS: Lisinopril 10mg tab ORAL SCH (08:47)
[2020-06-08 09:19] LABS: ALANINE AMINOTRANSFERASE 48 U/L (12-78); ALBUMIN 3.1 G/DL (3.4-5.0); ALBUMIN/GLOBULIN RATIO 0.9 (1.0-2.7); ALKALINE PHOSPHATASE 58 U/L (46-116); ANION GAP 12 mmol/L (5-15); ASPARTATE AMINO TRANSFERASE 60 U/L (15-37); BILIRUBIN,TOTAL 0.5 MG/DL (0.2-1.0); BLOOD UREA NITROGEN 10 mg/dL (7-18); CALCIUM 8.9 MG/DL (8.5-10.1); CARBON DIOXIDE 22 MMOL/L (21-32); CHLORIDE 108 MMOL/L (98-107); CREATININE 1.3 MG/DL (0.55-1.30); POTASSIUM 3.4 MMOL/L (3.5-5.1); SODIUM 142 MMOL/L (136-145)
[2020-06-08 09:53] LABS: % IRON SATURATION 9 % (15-50); IRON 31 ug/dL (50-175); TOTAL IRON BINDING CAPACITY 350 ug/dL (250-450)
[2020-06-08] MEDS: Morphine Sulfate 2mg/ml Inj(IV/IM USE ONLY) IVP PRN (10:25)
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
--- NOTE | 2020-06-08 11:48 | NUR ---
HAND-OFF: Report given to BREANNA Ledezma.
[2020-06-08 12:00] VITALS: BP 144/93
--- NOTE | 2020-06-08 12:00 | NUR ---
NURSE NOTES: RN received report from Crystal, patient in bed. Patient is aaoX4, does not show s/s of respiratory distress. Pain level of 2 and refused pain medication. Bedside commode and walker by the bedside. Patient verbalized understanding to press call light for assistance. Bed in lowest position and locked. IV running, intact, dry and asymptomatic. Will continue to monitor. Addendum: 06/08/20 at 1357 by Walter Ledezma RN Patient wearing RLE immobilizer, has an ice pack on. Skin warm, patient wiggles right toes, pulses palpable, capillary refill , 3 sec, no swelling noted.
--- NOTE | 2020-06-08 15:37 | Pulmonology Progress Note ---
Subjective ROS Limited/Unobtainable: Yes Constitutional: Denies: fever, chills Gastrointestinal/Abdominal: Denies: nausea, vomiting, diarrhea Musculoskeletal: Reports: pain - in right leg Allergies: Coded Allergies: No Known Allergies (Verified , 12/30/10) Objective Last 24 Hour Vital Signs Date Time Temp Pulse Resp B/P (MAP) Pulse Ox O2 Delivery O2 Flow Rate FiO2 06/08/20 12:00 97.4 75 18 144/93 (110) 96 06/08/20 10:55 97.0 06/08/20 09:00 Room Air 06/08/20 08:47 78 147/97 06/08/20 08:47 147/97 06/08/20 08:00 97.0 78 18 147/97 (114) 96 06/08/20 07:19 158/89 06/08/20 05:52 98.3 06/08/20 04:00 98.2 77 17 158/89 (112) 96 06/08/20 00:00 98.3 81 17 173/93 (119) 93 06/07/20 23:48 173/93 06/07/20 21:01 Room Air 06/07/20 20:00 98.6 86 17 159/99 (119) 93 06/07/20 16:00 98.6 87 20 142/87 (105) 98 Intake and Output 06/07/20 06/08/20 19:00 07:00 Intake Total 2490 ml 1980 ml Balance 2490 ml 1980 ml Intake Oral 840 ml 480 ml IV Total 1650 ml 1500 ml # Voids 4 # Bowel Movements 1 1 Laboratory Tests 06/08/20 06:24: White Blood Count 5.3, Red Blood Count 2.90L, Hemoglobin 8.8L, Hematocrit 28.4L, Mean Corpuscular Volume 98, Mean Corpuscular Hemoglobin 30.5, Mean Corpuscular Hemoglobin Concent 31.1L, Red Cell Distribution Width 15.2H, Platelet Count 214, Mean Platelet Volume 7.5, Neutrophils (%) (Auto) 64.1, Lymphocytes (%) (Auto) 12.8L, Monocytes (%) (Auto) 17.6H, Eosinophils (%) (Auto) 2.5, Basophils (%) (Auto) 3.0H, Sodium Level 142, Potassium Level 3.4L, Chloride Level 108H, Carbon Dioxide Level 22, Anion Gap 12, Blood Urea Nitrogen 10, Creatinine 1.3, Estimat Glomerular Filtration Rate > 60, Glucose Level 89, Calcium Level 8.9, Iron Level 31L, Total Iron Binding Capacity 350, Percent Iron Saturation 9L, Unsaturated Iron Binding 319, Total Bilirubin 0.5, Aspartate Amino Transf (AST/SGOT) 60H, Alanine Aminotransferase (ALT/SGPT) 48, Alkaline Phosphatase 58, Total Protein 6.7, Albumin 3.1L, Globulin 3.6, Albumin/Globulin Ratio 0.9L, Vitamin B12 Level 199, Folate 17.8 Current Medications Medications (Trade) Dose Ordered Sig/Albert Route PRN Reason Start Time Stop Time Status Last Admin Dose Admin Acetaminophen (Tylenol) 650 mg Q4H PRN ORAL Mild Pain (Pain Scale 1-3) 06/02/20 16:15 07/02/20 16:14 06/05/20 15:17 Acetaminophen/ Hydrocodone Bitart ([place] 5/325) 1 tab Q4H PRN ORAL Mild Pain (Pain Scale 1-3) 06/07/20 12:30 06/14/20 12:29 Acetaminophen/ Hydrocodone Bitart ([place] 5/325) 2 tab Q4H PRN ORAL Moderate Pain (Pain Scale 4-6) 06/07/20 12:30 06/14/20 12:29 06/08/20 05:22 Al Hydroxide/Mg Hydroxide (Mylanta) 30 ml Q4H PRN ORAL Dyspepsia 06/02/20 16:15 07/02/20 16:14 Amlodipine Besylate (Norvasc) 10 mg DAILY ORAL 06/08/20 09:00 07/08/20 08:59 06/08/20 08:47 Clonidine HCl (Catapres Tab) 0.1 mg Q4H PRN ORAL SBP > 150 06/06/20 13:30 09/04/20 13:29 06/08/20 07:19 Lisinopril (ZestriL) 10 mg DAILY ORAL 06/05/20 20:00 07/05/20 19:59 06/08/20 08:47 Morphine Sulfate (Morphine Sulfate) 2 mg Q4H PRN IVP Pain 4-10 06/02/20 15:45 06/09/20 15:44 06/08/20 10:25 Pantoprazole (Protonix) 40 mg DAILY ORAL 06/03/20 09:00 07/03/20 08:59 06/08/20 08:46 Potassium Chloride (K-Dur) 20 meq ONCE ONCE ORAL 06/08/20 15:45 06/08/20 15:46 UNV Sodium Chloride 1,000 ml @ 75 mls/hr [id number] IV 06/02/20 16:15 07/02/20 16:14 06/08/20 05:00 Assessment/Plan Assessment/Plan Pulmonary Progress Note Subjective Allergies: Coded Allergies: No Known Allergies (Verified , 12/30/10) Subjective care noted ID,GI following no new complaints K supplemented IV NS Objective Vital Signs noted Laboratory Tests noted Height (Feet): 6 Height (Inches): 1.00 Weight (Pounds): 163 Objective WDWN NAD clear breath sounds bilaterally without rhonchi or wheeze [id number] without MRG NABS nontender no HSM no CCE nonfocal Assessment/Plan IMPRESSION: 1. Tibial plateau fracture, right. 2. Elevated CK. 3. Anemia 4. Rhabdomyolysis. 5. Hyperglycemia. 6. Hypertension. PLAN CK lower iv hydration renal follow up monitor repeat labs in am impression, plan, and exam edited and reviewed in detail care discussed with Taqueria Vincent MD Jun 08, 2020 15:37
[2020-06-08 16:00] VITALS: BP 179/103
--- NOTE | 2020-06-08 18:06 | NUR ---
NURSE NOTES: Patient refused to elevate the leg because the immobilizer was too tight. Capillary refill within 3 seconds. Feet cold to touch.RN loosened the immobilizer for circulation and patient agreed to elevate the right leg. RN put the immobilizer back on one hour later and educated the patient that when moving, patient must wear the immobilizer on the leg. RN covered the legs with two blankets. Will continue to monitor.
--- NOTE | 2020-06-08 19:21 | NUR ---
NURSE HAND-OFF: Important Events on Shift: reminder to put back the immobilizer on the right leg, hypertension Patient Status: stable Diet: regular Pending Orders:n/a Pending Results/Labs:n/a Pending MD notification:n/a Latest Vital Signs: Temperature 97.5 , Pulse 85 , B/P 179 /103 , Respiratory Rate 19 , O2 SAT 96 , Room Air, O2 Flow Rate . Vital Sign Comment: hypertension Latest Huertas Fall Score: 60 Fall Risk: High Risk Safety Measures: Call light Within Reach, Bed Alarm Zone 1, Side Rails Side Rails x2, Bed position Low and Locked. Fall Precautions: Yellow Socks Yellow Gown Door Sign Patient Fall Education Report given to [].
[2020-06-08 20:00] VITALS: BP 146/90
--- NOTE | 2020-06-08 20:16 | NUR ---
NURSE NOTES: RECEIVED PATIENT LYING IN BED,AWAKE, ALERT/ORIENTED X4, VERBALLY RESPONSIVE, PAIN LEVEL 2/10, TOLERABLE. NO SIGNS AND SYMPTOMS OF ACUTE CARDIO RESPIRATORY DISTRESS/SHORTNESS OF BREATH, DENIES CHEST PAIN, EDEMA SUBSIDING. IMMOBILIZER OFF, PATIENT STATED "I DON'T NEED THAT ON MY LEG WHEN I'M IN BED, ONLY WHEN I'M UP WITH PT", RISKS AND BENEFITS EXPLAINED TO PATIENT, CONTINUE TO REFUSE, DISCUSSED PLAN OF CARE WITH PATIENT; ICE, ELEVATE, AND IMMOBILIZE THE KNEE, PATIENT REFUSED INTERVENTIONS. IV INTACT TO LEFT FOREARM/GAUGE 22, FLUIDS OFF, PATIENT STATED THAT HE IS DRINKING PLENTY OF WATER, WATER AND IV FLUIDS CAUSING FREQUENT URINATION. SIDE RAILS UP X2, BED IN LOWEST POSITION FOR SAFETY, ENCOURAGED PATIENT TO UTILIZE CALL LIGHT FOR ASSISTANCE, VERBALIZED UNDERSTANDING. OK TO DISCHARGE ON [place] STANDPOINT. FREQUENT ROUNDING FOR SAFETY/NEEDS. CONTINUE WITH CURRENT PLAN OF CARE. NAD.
[2020-06-09] VITALS: BP 159/89
--- NOTE | 2020-06-09 02:04 | Cardiology Progress Note ---
Subjective DATE OF SERVICE: Jun 08, 2020 Objective Last 24 Hour Vital Signs Date Time Temp Pulse Resp B/P (MAP) Pulse Ox O2 Delivery O2 Flow Rate FiO2 06/09/20 00:00 98.7 80 17 159/89 (112) 94 06/08/20 20:29 Room Air 06/08/20 20:00 98.2 81 19 146/90 (108) 97 06/08/20 16:50 179/103 06/08/20 16:00 97.5 85 19 179/103 (128) 96 06/08/20 12:00 97.4 75 18 144/93 (110) 96 06/08/20 10:55 97.0 06/08/20 09:00 Room Air 06/08/20 08:47 78 147/97 06/08/20 08:47 147/97 06/08/20 08:00 97.0 78 18 147/97 (114) 96 06/08/20 07:19 158/89 06/08/20 05:52 98.3 06/08/20 04:00 98.2 77 17 158/89 (112) 96 Laboratory Tests Test 06/08/20 06:24 White Blood Count 5.3 K/UL (4.8-10.8) Red Blood Count 2.90 M/UL (4.70-6.10) L Hemoglobin 8.8 G/DL (14.2-18.0) L Hematocrit 28.4 % (42.0-52.0) L Mean Corpuscular Volume 98 FL (80-99) Mean Corpuscular Hemoglobin 30.5 PG (27.0-31.0) Mean Corpuscular Hemoglobin Concent 31.1 G/DL (32.0-36.0) L Red Cell Distribution Width 15.2 % (11.6-14.8) H Platelet Count 214 K/UL (150-450) Mean Platelet Volume 7.5 FL (6.5-10.1) Neutrophils (%) (Auto) 64.1 % (45.0-75.0) Lymphocytes (%) (Auto) 12.8 % (20.0-45.0) L Monocytes (%) (Auto) 17.6 % (1.0-10.0) H Eosinophils (%) (Auto) 2.5 % (0.0-3.0) Basophils (%) (Auto) 3.0 % (0.0-2.0) H Sodium Level 142 MMOL/L (136-145) Potassium Level 3.4 MMOL/L (3.5-5.1) L Chloride Level 108 MMOL/L (98-107) H Carbon Dioxide Level 22 MMOL/L (21-32) Anion Gap 12 mmol/L (5-15) Blood Urea Nitrogen 10 mg/dL (7-18) Creatinine 1.3 MG/DL (0.55-1.30) Estimat Glomerular Filtration Rate > 60 mL/min (>60) Glucose Level 89 MG/DL (74-106) Calcium Level 8.9 MG/DL (8.5-10.1) Iron Level 31 ug/dL (50-175) L Total Iron Binding Capacity 350 ug/dL (250-450) Percent Iron Saturation 9 % (15-50) L Unsaturated Iron Binding 319 ug/dL (112-346) Total Bilirubin 0.5 MG/DL (0.2-1.0) Aspartate Amino Transf (AST/SGOT) 60 U/L (15-37) H Alanine Aminotransferase (ALT/SGPT) 48 U/L (12-78) Alkaline Phosphatase 58 U/L (46-116) Total Protein 6.7 G/DL (6.4-8.2) Albumin 3.1 G/DL (3.4-5.0) L Globulin 3.6 g/dL Albumin/Globulin Ratio 0.9 (1.0-2.7) L Vitamin B12 Level 199 PG/ML (193-986) Folate 17.8 NG/ML (8.6-58.9) Assessment/Plan Assessment/Plan Hypertensive heart disease with uncontrolled BP Advance amlodipine dose to 10mg daily Taqueria Trujillo MD Jun 09, 2020 02:04
[2020-06-09 04:00] VITALS: BP 156/88
[2020-06-09] MEDS: HYDROcodone/Acetamin 5/325 tab ORAL PRN (06:01)
--- NOTE | 2020-06-09 07:35 | NUR ---
NURSE HAND-OFF: Important Events on Shift:[REFUSED IMMOBIIZER, ICE PACKS AND IV FLUIDS, TOLERATING PO FLUIDS] Patient Status: [STABLE] Diet: [REGULAR] Pending Orders: [AM LABS] Pending Results/Labs:[STOOL OB] Pending MD notification:[] Latest Vital Signs: Temperature 98.3 , Pulse 74 , B/P 156 /88 , Respiratory Rate 17 , O2 SAT 94 , Room Air, O2 Flow Rate . Vital Sign Comment: [STABLE, AFEBRILE] Latest Huertas Fall Score: 60 Fall Risk: High Risk Safety Measures: Call light Within Reach, Bed Alarm Zone 1, Side Rails Side Rails x2, Bed position Low and Locked. Fall Precautions: Yellow Socks Yellow Gown Door Sign Patient Fall Education Report given to [DEMAR,RN].
[2020-06-09 08:00] VITALS: BP 135/80
--- NOTE | 2020-06-09 08:14 | NUR ---
NURSE NOTES: Received patient lying in bed, in NAD, AOx4. Patient refuses to Wear RLE immobilizer. Skin warm, patient wiggles right toes, pulses palpable, capillary refill , 3 sec, no swelling noted. LFA PIV access, pt refused IVF so dr Ria Pak'Cd IVF. Call light within reach, bed locked and in lowest position possible, call light within easy reach. Will continue to monitor patient and follow up the plan of care.
[2020-06-09] MEDS: Lisinopril 10mg tab ORAL SCH (08:38)
--- NOTE | 2020-06-09 10:43 | NUR ---
RD ASSESSMENT & RECOMMENDATIONS SEE CARE ACTIVITY FOR COMPLETE ASSESSMENT DAILY ESTIMATED NEEDS: Needs based on Cardiac 76 25-30 kcals/kg [id number] total kcals 1-1.2 g protein/kg 76-91 g total protein Fluid per MD NUTRITION DIAGNOSIS: Altered nutrition related lab values r/t clinical status as evidenced by Creat kinase 1684, elev BNP 2810, low K 3.4. CURRENT DIET: Regular PO DIET RECOMMENDATIONS: Low Na diet ADDITIONAL RECOMMENDATIONS: 1) Obtain a calibrated bed scale wt (76kg->82.5kg) 2) Low Na diet 3) Monitor for continued good po intake 4) Monitor renal labs, replete lytes as needed (K 3.4)
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
[2020-06-09 12:00] VITALS: BP 144/88
--- NOTE | 2020-06-09 13:34 | NUR ---
PT NOTE Patient preparing for discharge, not available for treatment. Crystal CARLOS aware.
[2020-06-09] MEDS: Morphine Sulfate 2mg/ml Inj(IV/IM USE ONLY) IVP PRN (13:59)
[2020-06-09] MEDS ORDERED: OXYCONTIN10 MG ORAL (14:26)
[2020-06-09] MEDS ORDERED: PERCOCET 5-3251 EACH ORAL (14:27)
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
--- NOTE | 2020-06-09 16:04 | NUR ---
INSURANCE CLINICALS AND REVIEW FAXED TO [facility] P [phone]
--- NOTE | 2020-06-09 17:24 | General Progress Note ---
Subjective Allergies: Coded Allergies: No Known Allergies (Verified , 12/30/10) Subjective care noted reviewed with patient doing well norml renal function normal UO Objective Last 24 Hour Vital Signs Date Time Temp Pulse Resp B/P (MAP) Pulse Ox O2 Delivery O2 Flow Rate FiO2 06/09/20 14:29 98.0 06/09/20 12:00 98.0 76 20 144/88 (106) 94 06/09/20 09:00 Room Air 06/09/20 08:38 135/80 06/09/20 08:37 98 135/80 06/09/20 08:00 97.4 98 20 135/80 (98) 96 06/09/20 06:31 98.3 06/09/20 05:04 156/88 06/09/20 04:00 98.3 74 17 156/88 (110) 94 06/09/20 00:00 98.7 80 17 159/89 (112) 94 06/08/20 20:29 Room Air 06/08/20 20:00 98.2 81 19 146/90 (108) 97 Intake and Output 06/08/20 06/09/20 19:00 07:00 Intake Total 840 ml 600 ml Balance 840 ml 600 ml Intake Oral 840 ml 600 ml # Voids 5 4 # Bowel Movements 1 1 Height (Feet): 6 Height (Inches): 1.00 Weight (Pounds): 163 Objective WDWN NAD clear breath sounds bilaterally without rhonchi or wheeze [id number] without MRG NABS nontender no HSM no CCE nonfocal Assessment/Plan Assessment/Plan: IMPRESSION: 1. Tibial plateau fracture, right. 2. Elevated CK. 3. Anemia. worsening 4. Rhabdomyolysis. 5. Hyperglycemia. 6. Hypertension. PLAN CK better iv hydration and now refused renal follow up - cleared for discharge monitor repeat labs after discharge patient cleared for discharge by all impression, plan, and exam edited and reviewed in detail care discussed with Thomas Willams MD Jun 09, 2020 17:24
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
== END 2020-06-09 15:05 | disposition home or self-care (01) | DRG 563 ==
LOC: EDBD 11:18 → EMR 11:59 → 4E 12:50 → EDBEDREQ 14:29
DX: S82.141A Displaced bicondylar fracture of right tibia, initial encounter for closed fracture (principal); M62.82 Rhabdomyolysis; S82.491A Other fracture of shaft of right fibula, initial encounter for closed fracture; V09.20XA Pedestrian injured in traffic accident involving unspecified motor vehicles, initial encounter; Y92.410 Unspecified street and highway as the place of occurrence of the external cause; M25.461 Effusion, right knee; D64.9 Anemia, unspecified; R73.9 Hyperglycemia, unspecified; I10 Essential (primary) hypertension; H54.7 Unspecified visual loss; R74.8 Abnormal levels of other serum enzymes; M70.30 Other bursitis of elbow, unspecified elbow
CPT/HCPCS: 36415; 71045; 80048; 80053; 82248; 82270; 82550; 82607; 82746; 83540; 83550; 83880; 84484; 85007; 85025; 85610; 85730; 86900; 86901; 93005; 96374; 99285; J7030; J8499; U0002